=== PATIENT | female | born 1980 | race Caucasian/White ===

== ENCOUNTER 2025-02-01 03:18 | Emergency (ER) | payer BC ==
[2025-02-01] MEDS: Meclizine 25 MG Tab PO ONE (04:06)
[2025-02-01 04:11] LABS: HEMATOCRIT 28.5 % (37.0-47.0); HEMOGLOBIN 8.2 g/dL (12.0-16.0); MEAN CORPUSCULAR HEMOGLOBIN 19.9 pg (28.0-32.0); MEAN CORPUSCULAR HGB CONC 28.8 g/dL (32.0-36.0); MEAN PLATELET VOLUME 8.4 fL (9.4-12.3); PLATELET COUNT,PLT 328 K/uL (150-400); RED BLOOD CELL COUNT 4.13 M/uL (4.10-5.30); WHITE BLOOD CELL COUNT,WBC 16.52 K/uL (3.9-11.3)
[2025-02-01 04:29] LABS: HYPOCHROMASIA 2+ MODERATE; LYMPHOCYTES PERCENT MAN 3 % (24-44); MICROCYTOSIS 2+ MODERATE; MONOCYTES ABSOLUTE MAN 1.32 K/uL (0.00-0.80); MONOCYTES PERCENT MAN 8 % (0-8); SEG NEUTROPHILS PERCENT MAN 89 % (41-71)
[2025-02-01 04:45] LABS: A/G RATIO 0.9 (0.9-1.6); ALANINE AMINOTRANSFERASE,ALT 26 IU/L (14-63); ALKALINE PHOSPHATASE 78 U/L (46-116); ASPARTATE AMNIOTRANSFERASE,AST 24 IU/L (15-37); BILIRUBIN TOTAL 0.6 mg/dL (0.2-1.0); BLOOD UREA NITROGEN,BUN 10 mg/dL (7.0-18.0); CALCIUM 8.6 mg/dL (8.5-10.1); CARBON DIOXIDE,CO2 26.6 mmol/L (21.0-32.0); CHLORIDE,CL 100 mmol/L (98-107); EST CRCL DRUG DOSING (CG) 63.93 mL/min; GLUCOSE RANDOM 129 mg/dL (74-106); POTASSIUM,K 3.6 mmol/L (3.5-5.1); PROTEIN TOTAL,TP 6.2 g/dL (6.4-8.2); SODIUM,NA 137 mmol/L (136-145)
[2025-02-01 04:47] LABS: ESTIMATED GFR 71 mL/min (>60)
== END 2025-02-01 05:09 | disposition home or self-care (01) ==
LOC: MW.ED 03:18
DX: J06.9 Acute upper respiratory infection, unspecified (principal); D50.9 Iron deficiency anemia, unspecified; E23.6 Other disorders of pituitary gland; Z79.899 Other long term (current) drug therapy
CPT/HCPCS: 36415; 70450; 71045; 80053; 84484; 85025; 87428; 93005; 99284; A9270; 93010; 99283

== ENCOUNTER 2025-02-23 09:36 | Day surgery (SDC) | payer BC ==
[~2025-02-23 09:36] MED LIST: Sodium Chloride 0.9% 10 ML Syringe FLUSH PRN; Sodium Chloride 0.9% 2.5 ML Syringe FLUSH PRN; Sodium Chloride 0.9% 20 ML SDV IV PRN
[2025-02-23] MEDS: Lactated Ringers 1,000 ML IV SCH (10:22)
[2025-02-23] MEDS ORDERED: propofoL 500 MG/50 ML 50 ML ONE (11:34)
[2025-02-23] MEDS ORDERED: Propofol 200 MG/20 ML SDV ONE (12:06)
== END 2025-02-23 13:05 | disposition home or self-care (01) ==
LOC: MW.SDS 09:36
PROVIDERS: ATTEND Surgery
DX: D50.9 Iron deficiency anemia, unspecified (principal); K29.50 Unspecified chronic gastritis without bleeding; K44.9 Diaphragmatic hernia without obstruction or gangrene; Z98.84 Bariatric surgery status
CPT/HCPCS: 43239; 45378; 81025; J2704; J7120; 00813

== ENCOUNTER 2025-05-21 17:42 | Emergency (ER) | payer BC ==
[2025-05-21] MEDS: Diphtheria,Pertussis(Acell),Tetanus Vaccine 0.5 ML Syringe IM ONE (20:24)
== END 2025-05-21 21:28 | disposition home or self-care (01) ==
LOC: MW.ED 17:42
DX: S61.210A Laceration without foreign body of right index finger without damage to nail, initial encounter (principal); Z98.84 Bariatric surgery status; Z79.899 Other long term (current) drug therapy; W26.0XXA Contact with knife, initial encounter; Z23 Encounter for immunization
CPT/HCPCS: 12001; 90471; 90715; 99283; J2003

== ENCOUNTER 2025-09-20 08:24 | Day surgery (SDC) | payer BC ==
[~2025-09-20 08:24] MED LIST changes: +Albuterol 0.083% 2.5 MG/3 ML Neb Soln NEB PRN; +Naloxone 0.4 MG/ML SDV IVPUSH PRN; +Ondansetron 4 MG/2 ML SDV IVPUSH PRN; -Sodium Chloride 0.9% 10 ML Syringe FLUSH PRN; -Sodium Chloride 0.9% 2.5 ML Syringe FLUSH PRN; -Sodium Chloride 0.9% 20 ML SDV IV PRN; +fentaNYL 50 MCG/ML SDV IVPUSH PRN
[2025-09-20] MEDS: Scopalamine 1mg/3day Transdermal Patch TOP ONE (08:45)
[2025-09-20] MEDS ORDERED: Propofol 200 MG/20 ML SDV ONE (08:55)
[2025-09-20] MEDS ORDERED: fentaNYL 100 MCG/2 ML SDV ONE (08:55)
[2025-09-20] MEDS: Lactated Ringers 1,000 ML IV SCH (09:05)
[2025-09-20] MEDS ORDERED: Dexamethasone 4 MG/ML 5 ML MDV ONE (09:50)
[2025-09-20] MEDS ORDERED: Ondansetron 4 MG/2 ML SDV ONE (09:50)
[2025-09-20] MEDS ORDERED: dexmedeTOMIDine HCl 200 MCG/2 ML SDV ONE (10:01)
[2025-09-20] MEDS ORDERED: Ketorolac 30 MG/ML SDV ONE (10:32)
[2025-09-20] MEDS ORDERED: Acetaminophen/HYDROcodone 325-5 MG Tab PO PRN (10:44)
[2025-09-20] MEDS ORDERED: Lactated Ringers 1,000 ML IV SCH (10:45)
== END 2025-09-20 11:30 | disposition home or self-care (01) ==
LOC: MW.SDS 08:24
PROVIDERS: ATTEND Surgery
DX: D17.21 Benign lipomatous neoplasm of skin and subcutaneous tissue of right arm (principal); Z79.899 Other long term (current) drug therapy
CPT/HCPCS: 24071; 81025; A9270; J0665; J1100; J1885; J2405; J2704; J3010; J7120; J7999; 01710; J2371